=== PATIENT | male | born 1995 | race American Indian/Alaskan Native ===

== ENCOUNTER 2016-06-12 20:50 | Emergency (ER) | payer OTHER, MEDICAID ==
[2016-06-12 21:56] VITALS: TEMP 99.4; O2SAT 100
[2016-06-12] MEDS ORDERED: Naproxen 550 mg Tab PO STA (22:21)
--- NOTE | 2016-06-12 23:59 | ED PDOC ---
Arrival/HPI - General Historian: Patient <Nilda Ortega PA-C - Last Filed: 06/12/16 23:54> <Nasir Springer - Last Filed: 06/13/16 00:23> - General Chief Complaint: Lower Extremity Problem/Injury Time Seen by Provider: 06/12/16 22:21 - History of Present Illness Narrative History of Present Illness (Text): 06/12/16 23:54 Patient reports injuring his left foot at work today when the "fork lift fell" and struck the top of his foot. Otherwise: (-) other injury, (-) numbness. PMD none (Nilda Ortega PA-C) Past Medical History - Provider Review Nursing Documentation Reviewed: Yes - Infectious Disease Hx of Infectious Diseases: None - Psychiatric Hx Substance Use: No - Surgical History Other/Comment: jaw - Anesthesia Hx Anesthesia: No <Nilda Ortega PA-C - Last Filed: 06/12/16 23:54> Family/Social History - Physician Review Nursing Documentation Reviewed: Yes Family/Social History: No Known Family HX Smoking Status: Unknown If Ever Smoked Hx Alcohol Use: No Hx Substance Use: No <Nilda Ortega PA-C - Last Filed: 06/12/16 23:54> Allergies/Home Meds <Nilda Ortega PA-C - Last Filed: 06/12/16 23:54> <Nasir Springer - Last Filed: 06/13/16 00:23> Allergies/Adverse Reactions: Allergies No Known Allergies Allergy (Verified 06/12/16 21:56) Review of Systems - Review of Systems Constitutional: Normal. absent: Fatigue, Weight Change, Fevers Musculoskeletal: Normal. absent: Arthralgias, Back Pain Skin: Normal. absent: Rash, Skin Lesions <Nilda Ortega PA-C - Last Filed: 06/12/16 23:54> Physical Exam <Nilda Ortega PA-C - Last Filed: 06/12/16 23:54> <Nasir Springer - Last Filed: 06/13/16 00:23> - Physical Exam Narrative Physical Exam (Text): 06/12/16 23:56 GENERAL APPEARANCE: Patient is awake, alert, oriented x 3, in mild painful distress. SKIN: Warm, dry, (-) skin leasions or rashes. LOWER EXTREMITY: (+) Tenderness, (+) swelling, (-) ecchymosis of to the dorsal mid L foot. (-) crepitus, (-) deformity. Tendon function intact. (-) distal neurovascular deficit. (+) 2 point discrimination. Remainder of foot, digits and ankle: (-) injury except. (Nilda Ortega PA-C) Vital Signs Temp Pulse Resp BP Pulse Ox 06/12/16 21:53 99.4 F 72 16 123/76 100 Medical Decision Making <Nilda Ortega PA-C - Last Filed: 06/12/16 23:54> <Nasir Springer - Last Filed: 06/13/16 00:23> ED Course and Treatment: 06/12/16 23:57 20 yo M presents with injury to the L foot. Plan -- XR L foot -- Naprosyn PO XR L foot: no fracture, no dislocation, as read by PA Patient advised that official radiology read of XR is still pending and will call the patient if there is any discrepancy within 24 hours. Orthoglass posterior short leg splint applied by LOUIS. Neurovascular intact post splint application. Patient instructed on crutch walking. Based on history, exam and diagnostic results plan will be for outpatient follow -up with Workmen's Comp. Prescription provided. Patient states he fully agrees with and understands discharge instructions. States that he agrees with the plan and disposition. Verbalized and repeated discharge instructions and plan. I have given the patient opportunity to ask any additional questions. Follow up with Workmen's Comp in 1-2 days without fail. Advised to take medication as prescribed. Return to the emergency room at any time for any new or worsening symptoms. (Nilda Ortega PA-C) - RAD Interpretation Radiology Orders: 06/12/16 22:21 FOOT RIGHT 3 VIEWS ROUTINE [RAD] Stat - Medication Orders Current Medication Orders: Discontinued Medications Naproxen (Anaprox Ds) 550 mg PO ONCE STA Stop: 06/12/16 22:22 Last Admin: 06/12/16 22:41 Dose: 550 MG - PA / STRAP STITCHER / Resident Statement [facility] has reviewed & agrees with the documentation as recorded. <Nilda Ortega PA-C - Last Filed: 06/12/16 23:54> - PA / STRAP STITCHER / Resident Statement [facility] has reviewed & agrees with the documentation as recorded. [facility] has examined the patient and agrees with the treatment plan. <Nasir Springer - Last Filed: 06/13/16 00:23> Disposition/Present on Arrival - Present on Arrival Any Indicators Present on Arrival: No History of DVT/PE: No History of Uncontrolled Diabetes: No Urinary Catheter: No History of Decub. Ulcer: No History Surgical Site Infection Following: None - Disposition Have Diagnosis and Disposition been Completed?: Yes Disposition Time: 23:59 Patient Plan: Discharge <Nilda Ortega PA-C - Last Filed: 06/12/16 23:54> <Nasir Springer - Last Filed: 06/13/16 00:23> - Disposition Diagnosis: Foot contusion Disposition: HOME/ ROUTINE Condition: GOOD Discharge Instructions (ExitCare): Foot Contusion (ED) Print Language: AUSTRIAN Additional Instructions: Thank you for letting us take care of you today. You were treated for foot contusion. The emergency medical care you received today was directed at your acute symptoms. If you were prescribed any medication, please fill it and take as directed. It may take several days for your symptoms to resolve. Return to the Emergency Department if your symptoms worsen, do not improve, or if you have any other problems. Please contact workman's comp in 2 days for re-evaluation and follow up. Bring any paperwork you were given at discharge with you along with any medications you are taking to your follow up visit. Our treatment cannot replace ongoing medical care by a primary care provider (PCP) outside of the emergency department. Thank you for allowing the [facility] team to be part of your care today. Prescriptions: Naproxen 500 mg PO BID #30 tab Forms: WORK NOTE
[2016-06-13 00:40] VITALS: BP 129/86; PULSE 74; RESP 18
--- NOTE | 2016-06-13 07:25 | RAD ---
PROCEDURE: Right Foot Radiographs. HISTORY: pain COMPARISON: None. FINDINGS: BONES: Normal. No fracture. JOINTS: Normal. SOFT TISSUES: Normal. OTHER FINDINGS: None. IMPRESSION: Normal right foot radiographs.
== END 2016-06-13 00:42 | disposition home or self-care (01) ==
LOC: ED 20:50
DX: S90.32XA Contusion of left foot, initial encounter (principal); W31.89XA Contact with other specified machinery, initial encounter; Y92.89 Other specified places as the place of occurrence of the external cause; Y99.0 Civilian activity done for income or pay

== ENCOUNTER 2016-06-19 13:18 | Emergency (ER) | payer OTHER, MEDICAID ==
[2016-06-19 13:32] VITALS: BMI 23.7
[2016-06-19 13:35] VITALS: TEMP 98.2
--- NOTE | 2016-06-19 14:11 | ED PDOC ---
Arrival/HPI - General Chief Complaint: Lower Extremity Problem/Injury Time Seen by Provider: 06/19/16 13:34 Historian: Patient - History of Present Illness Narrative History of Present Illness (Text): 06/19/16 14:08 20 y/o male, no significant pmh, nkda, c/o here for the evaluation of the rt. foot x 1 week. Pt. had forklift injury on the rt. 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 Pt. has no numbness or tingling, no night sweat, no dizziness, no chest pain or shortness of breath, no palpitation , no rash, no other medical or psychological complaints. Past Medical History - Provider Review Nursing Documentation Reviewed: Yes - Infectious Disease Hx of Infectious Diseases: None - Psychiatric Hx Substance Use: No - Surgical History Other/Comment: jaw - Anesthesia Hx Anesthesia: No Family/Social History - Physician Review Nursing Documentation Reviewed: Yes Family/Social History: Unknown Family HX Smoking Status: Unknown If Ever Smoked Hx Alcohol Use: No Hx Substance Use: No Allergies/Home Meds Allergies/Adverse Reactions: Allergies No Known Allergies Allergy (Verified 06/19/16 13:32) Review of Systems - Review of Systems Constitutional: absent: Fatigue, Fevers Eyes: absent: Vision Changes ENT: absent: Hearing Changes Respiratory: absent: Cough, Sputum Cardiovascular: absent: Chest Pain Gastrointestinal: absent: Abdominal Pain, Nausea, Vomiting Musculoskeletal: absent: Back Pain, Neck Pain, Joint Swelling, Myalgias Skin: absent: Rash, Pruritis, Skin Lesions, Laceration, Abscess, Ulcer Physical Exam Vital Signs Temp Pulse Resp BP Pulse Ox 06/19/16 13:34 98.2 F 65 17 119/56 L 100 Temperature: Afebrile Pulse: Regular Respiratory Rate: Normal Appearance: Positive for: Well-Appearing, Non-Toxic, Comfortable Pain Distress: Mild Mental Status: Positive for: Alert and Oriented X 3 - Systems Exam Head: Present: Atraumatic, Normocephalic Pupils: Present: PERRL Extroacular Muscles: Present: EOMI Conjunctiva: Present: Normal Mouth: Present: Moist Mucous Membranes Neck: Present: Normal Range of Motion Respiratory/Chest: Present: Clear to Auscultation, Good Air Exchange. No: Respiratory Distress, Accessory Muscle Use Cardiovascular: Present: Regular Rate and Rhythm, Normal S1, S2. No: Murmurs Abdomen: Present: Normal Bowel Sounds. No: Tenderness, Distention, Peritoneal Signs Back: Present: Normal Inspection Upper Extremity: Present: Normal Inspection. No: Cyanosis, Edema Lower Extremity: Present: Normal Inspection, Other (Rt. foot: short posterior splint only up to the mid half calf, splint removed, no tenderness or swelling, no ecchymosis, no laceration or abrasion, FROM without limitation, sensation intact, motor 5/5, +DPPT pulses, capillary refill< 2 seconds, neurovascular intact. ). No: Edema Neurological: Present: GCS=15, CN II-XII Intact, Speech Normal Skin: Present: Warm, Dry, Normal Color. No: Rashes Psychiatric: Present: Alert, Oriented x 3, Normal Insight, Normal Concentration Medical Decision Making ED Course and Treatment: 06/19/16 14:11 -rt. foot examination is unremarkable, will repeat x ray today, and reassess 06/19/16 14:56 -xray show no acute fracture or dislocation. -physical examination is unremarkable. 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 - RAD Interpretation Radiology Orders: 06/19/16 14:07 FOOT RIGHT 3 VIEWS ROUTINE [RAD] Stat PROCEDURE: Right Foot Radiographs. HISTORY: rt. foot pain x 1 week, negative x ray 1 week ago, COMPARISON: None. FINDINGS: BONES: Normal. No fracture. JOINTS: Normal. SOFT TISSUES: Normal. OTHER FINDINGS: None. IMPRESSION: Normal right foot radiographs. External Grinder: Radiologist - PA / HOME RESTORATION SERVICE CLEANER / Resident Statement MD/DO has reviewed & agrees with the documentation as recorded. Disposition/Present on Arrival - Present on Arrival Any Indicators Present on Arrival: No History of DVT/PE: No History of Uncontrolled Diabetes: No Urinary Catheter: No History of Decub. Ulcer: No History Surgical Site Infection Following: None - Disposition Have Diagnosis and Disposition been Completed?: Yes Diagnosis: Follow up, Foot injury Disposition: HOME/ ROUTINE Disposition Time: 14:57 Patient Plan: Discharge Condition: GOOD Additional Instructions: Discharge home with education on continue the crutches if needed, follow up with your own pmd and cut out machine operator within 2 days as needed, return to the ER for any new or worsening signs or symptoms. Prescriptions: Meloxicam [Mobic] 15 mg PO DAILY PRN #10 tablet PRN Reason: Other Referrals: PCP,NO [Primary Care Provider] - Follow up with primary Mauro Martin DPM [Staff Provider] - Follow up with primary Forms: WORK NOTE
--- NOTE | 2016-06-19 14:51 | RAD ---
PROCEDURE: Right Foot Radiographs. HISTORY: rt. foot pain x 1 week, negative x ray 1 week ago, COMPARISON: None. FINDINGS: BONES: Normal. No fracture. JOINTS: Normal. SOFT TISSUES: Normal. OTHER FINDINGS: None. IMPRESSION: Normal right foot radiographs.
[2016-06-19 15:10] VITALS: BP 115/53; PULSE 62; RESP 16; O2SAT 99
== END 2016-06-19 15:47 | disposition home or self-care (01) ==
LOC: ED 13:18
DX: S99.821D Other specified injuries of right foot, subsequent encounter (principal); W31.89XD Contact with other specified machinery, subsequent encounter

== ENCOUNTER 2016-06-20 18:16 | Emergency (ER) | payer MEDICAID, OTHER ==
[2016-06-20 18:17] VITALS: BMI 23.7
[2016-06-20 18:30] VITALS: RESP 16; TEMP 98.2; O2SAT 100
--- NOTE | 2016-06-20 19:06 | ED PDOC ---
Arrival/HPI - General Chief Complaint: Male Genitourinary Time Seen by Provider: 06/20/16 19:05 Historian: Patient - History of Present Illness Narrative History of Present Illness (Text): 06/20/16 19:05 This 20 yo male presents to this ED c/o dysuria x 3 days. Patient stated he has seen a clear penile discharge x 1-2 days. Patient denies testicular pain, genital rash, fever, hematuria, or urinary frequency. Time/Duration: Other (3 days) Context: Home Past Medical History - Provider Review Nursing Documentation Reviewed: Yes - Infectious Disease Hx of Infectious Diseases: None - Psychiatric Hx Substance Use: No - Surgical History Other/Comment: jaw - Anesthesia Hx Anesthesia: No Family/Social History - Physician Review Nursing Documentation Reviewed: Yes Family/Social History: No Known Family HX Smoking Status: Light Smoker < 10 Cigarettes Daily Hx Alcohol Use: No Hx Substance Use: No Allergies/Home Meds Allergies/Adverse Reactions: Allergies No Known Allergies Allergy (Verified 06/20/16 18:24) Home Medications: Home Meds Medication Instructions Recorded Confirmed No Known Home Med 06/20/16 06/20/16 Review of Systems - Review of Systems Constitutional: Normal. absent: Fatigue, Weight Change, Fevers Eyes: Normal ENT: Normal Respiratory: Normal Cardiovascular: Normal Gastrointestinal: Normal. absent: Abdominal Pain, Stool Changes, Diarrhea, Nausea, Vomiting Genitourinary Male: Dysuria, Other (Denies testicular pain). absent: Frequency , Hematuria Musculoskeletal: Normal Skin: Normal Neurological: Normal Endocrine: Normal Hemo/Lymphatic: Normal Psychiatric: Normal Physical Exam Vital Signs Temp Pulse Resp BP Pulse Ox 06/20/16 20:15 67 16 127/69 100 06/20/16 18:25 98.2 F 66 16 130/82 100 Temperature: Afebrile Blood Pressure: Normal Pulse: Regular Respiratory Rate: Normal Appearance: Positive for: Well-Appearing, Non-Toxic, Comfortable Pain Distress: None Mental Status: Positive for: Alert and Oriented X 3 - Systems Exam Head: Present: Atraumatic, Normocephalic Pupils: Present: PERRL Extroacular Muscles: Present: EOMI Conjunctiva: Present: Normal Mouth: Present: Moist Mucous Membranes Neck: Present: Normal Range of Motion Respiratory/Chest: Present: Clear to Auscultation, Good Air Exchange. No: Respiratory Distress, Accessory Muscle Use Cardiovascular: Present: Regular Rate and Rhythm, Normal S1, S2. No: Murmurs Abdomen: Present: Normal Bowel Sounds. No: Tenderness, Distention, Peritoneal Signs Rectal: Present: Other (deferred) Genitourinary Male: Present: Normal External Genitalia, Circumcised Penis, Penile Discharge (trace clear discharge), Masses (Left rounded mobile mass, non- tender just above left testicle). No: Lesions, Testicle Tenderness, Penile Swelling, Erythema, Hernias, Testicle Swelling Back: Present: Normal Inspection Upper Extremity: Present: Normal Inspection. No: Cyanosis, Edema Lower Extremity: Present: Normal Inspection. No: Edema Neurological: Present: GCS=15, CN II-XII Intact, Speech Normal Skin: Present: Warm, Dry, Normal Color. No: Rashes Psychiatric: Present: Alert, Oriented x 3 Medical Decision Making ED Course and Treatment: 06/20/16 19:45 Re-evaluation. Patient feels better. Discussed results and plan with patient who expresses understanding. All questions answered and there is agreement with the plan to discharge home with instructions. Patient stable for discharge. Return if symptoms persist or worsen. Re-evaluation Time: 19:45 Reassessment Condition: Re-examined, Improved - Lab Interpretations Lab Results: Lab Results 06/20/16 19:20: C.trachomatis RNA (TMA) Detected H, N.gonorrhoeae RNA (TMA) Not detected - Medication Orders Current Medication Orders: Discontinued Medications Azithromycin (Zithromax) 1,000 mg PO STAT STA PRN Reason: Protocol Stop: 06/20/16 19:08 Last Admin: 06/20/16 19:29 Dose: 1,000 MG Ceftriaxone Sodium (Rocephin) 250 mg IM STAT STA PRN Reason: Protocol Stop: 06/20/16 19:08 Last Admin: 06/20/16 19:29 Dose: 250 MG IM Administration Charges Document 06/20/16 19:29 EQ (Rec: 06/20/16 19:29 EQ [id number]) Injection Site MAR Injection Site Left Deltoid Charges for Administration # of IM Administrations 1 Disposition/Present on Arrival - Present on Arrival Any Indicators Present on Arrival: No History of DVT/PE: No History of Uncontrolled Diabetes: No Urinary Catheter: No History of Decub. Ulcer: No History Surgical Site Infection Following: None - Disposition Have Diagnosis and Disposition been Completed?: Yes Diagnosis: Urethritis, Testicular mass Disposition: HOME/ ROUTINE Disposition Time: 19:46 Patient Plan: Discharge Condition: GOOD Discharge Instructions (ExitCare): Nonspecific Urethritis in Men (ED) Additional Instructions: Call private doctor for follow up visit in 1-2 days . Also call Urologist to recheck left testicular mass within a week. Return to emergency if symptoms worsen. Do not perform sexual intercourse till you know STD report Referrals: PCP,NO [Primary Care Provider] - Follow up with primary Jeana Patel MD [Staff Provider] - Follow up with primary
[2016-06-20] MEDS ORDERED: cefTRIAXone (Rocephin) 250 mg Inj IM STA (19:07)
[2016-06-20 20:23] VITALS: BP 127/69; PULSE 67
== END 2016-06-20 20:15 | disposition home or self-care (01) ==
LOC: ED 18:16
DX: N34.2 Other urethritis (principal); N50.89 Other specified disorders of the male genital organs
CPT/HCPCS: 87491; 87591; 96372; 99283; J0696

== ENCOUNTER 2017-08-08 20:06 | Emergency (ER) | payer MEDICAID ==
[2017-08-08 20:07] VITALS: BMI 23.7
[2017-08-08 20:48] VITALS: BP 131/88; PULSE 79; TEMP 98.2
[2017-08-08] MEDS ORDERED: cefTRIAXone (Rocephin) 250 mg Inj IM STA (21:09)
[2017-08-08] MEDS ORDERED: Lidocaine 1% Inj (20ml) ONE (21:36)
--- NOTE | 2017-08-08 21:52 | ED PDOC ---
Arrival/HPI - General Chief Complaint: Male Genitourinary Time Seen by Provider: 08/08/17 20:51 Historian: Patient - History of Present Illness Narrative History of Present Illness (Text): 08/08/17 21:53 21-year-old male presents today stating that his partner was diagnosed with chlamydia. Patient states he has occasional burning upon urination. He denies testicular pain he denies any testicular lesions. He denies fevers or chills. He denies penile discharge. Patient states on a side note he did have a tattoo done on 07/30 to left forearm. Patient states today he noticed it was peeling and looked infected. He denies pain. Patient denies abdominal pain. No nausea or vomiting. No other complaints Symptom Course: Intermittent Quality: Burning Severity Level: 1 Past Medical History - Provider Review Nursing Documentation Reviewed: Yes - Travel History Have you recently traveled outside [place] w/in the past 3 mons?: No - Infectious Disease Hx of Infectious Diseases: None - Cardiac Hx Cardiac Disorders: No - Pulmonary Hx Respiratory Disorders: No - Neurological Hx Neurological Disorder: No - HEENT Hx HEENT Disorder: No - Renal Hx Renal Disorder: No - Endocrine/Metabolic Hx Endocrine Disorders: No - Hematological/Oncological Hx Blood Disorders: No - Integumentary Hx Dermatological Disorder: No - Musculoskeletal/Rheumatological Hx Musculoskeletal Disorders: No - Gastrointestinal Hx Gastrointestinal Disorders: No - Genitourinary/Gynecological Hx Genitourinary Disorders: No - Psychiatric Hx Psychophysiologic Disorder: No Hx Substance Use: No - Surgical History Other/Comment: jaw - Anesthesia Hx Anesthesia: Yes Hx Anesthesia Reactions: No Hx Malignant Hyperthermia: No Family/Social History - Physician Review Nursing Documentation Reviewed: Yes Family/Social History: Unknown Family HX Smoking Status: Light Smoker < 10 Cigarettes Daily Hx Alcohol Use: No Hx Substance Use: No Allergies/Home Meds Allergies/Adverse Reactions: Allergies No Known Allergies Allergy (Verified 06/20/16 18:24) Review of Systems - Review of Systems Constitutional: absent: Fatigue, Fevers Respiratory: absent: SOB, Cough Cardiovascular: absent: Chest Pain, Palpitations Gastrointestinal: absent: Abdominal Pain, Nausea, Vomiting Genitourinary Male: Dysuria. absent: Frequency, Hematuria, Urinary Output Changes Musculoskeletal: absent: Arthralgias, Back Pain, Neck Pain Skin: Cellulitis (left forearm). absent: Pruritis, Skin Lesions Neurological: absent: Headache, Dizziness Psychiatric: absent: Anxiety, Depression Physical Exam Vital Signs Reviewed: Yes Vital Signs Temp Pulse Resp BP Pulse Ox 08/08/17 20:44 98.2 F 79 22 131/88 100 Temperature: Afebrile Blood Pressure: Normal Pulse: Regular Respiratory Rate: Normal Appearance: Positive for: Well-Appearing, Non-Toxic, Comfortable Pain Distress: None Mental Status: Positive for: Alert and Oriented X 3 - Systems Exam Head: Present: Atraumatic Respiratory/Chest: Present: Clear to Auscultation Cardiovascular: Present: Regular Rate and Rhythm Upper Extremity: Present: Normal ROM, NORMAL PULSES, Erythema (left arm there is a small area of erythema noted along volar aspect of arm at tatoo; non tender ; no purulent discharge. ). No: Tenderness, Swelling, Neurovascularly Intact, Deformity Neurological: Present: GCS=15 Skin: Present: Warm, Dry Psychiatric: Present: Alert, Oriented x 3 Medical Decision Making ED Course and Treatment: 08/08/17 21:56 Patient is nontoxic well-appearing in no distress with stable vital signs. Presenting with partner after partner received a phone call from her animal physiology teacher that she was positive for chlamydia. Ceftriaxone 250 mg IM Zithromax 1 g p.o. given Gonorrhea and Chlamydia cultures are pending. Patient with cellulitis to the left forearm. will give patient rx Bactrim and Keflex Advised patient to refrain from sex for 10 days followup with the primary care physician within the next 2 days or return if symptoms worsen persist or if new symptoms develop. Impression: STD exposure, cellulitis forearm Bactrim 1 tablet twice daily 7 days Keflex 1 capsule 4 times daily 7 days Follow-up the primary care physician within the next 2 days Return if symptoms worsen persist or if new concerning symptoms develop 08/08/17 21:57 08/08/17 22:19 pt left without d/c papers and rx for bactrim and keflex; called patient; phone number is invalid. - Medication Orders Current Medication Orders: Discontinued Medications Azithromycin (Zithromax) 1,000 mg PO STAT STA PRN Reason: Protocol Stop: 08/08/17 21:10 Last Admin: 08/08/17 21:43 Dose: 1,000 mg Ceftriaxone Sodium (Rocephin) 250 mg IM STAT STA PRN Reason: Protocol Stop: 08/08/17 21:10 Last Admin: 08/08/17 21:42 Dose: 250 mg IM Administration Charges Document 08/08/17 21:42 SS (Rec: 08/08/17 21:42 SS [id number]) Injection Site MAR Injection Site Right Gluteus John Charges for Administration # of IM Administrations 1 Disposition/Present on Arrival - Present on Arrival Any Indicators Present on Arrival: No History of DVT/PE: No History of Uncontrolled Diabetes: No Urinary Catheter: No History of Decub. Ulcer: No History Surgical Site Infection Following: None - Disposition Have Diagnosis and Disposition been Completed?: Yes Diagnosis: STD exposure, Cellulitis of arm Disposition: HOME/ ROUTINE Disposition Time: 21:49 Patient Plan: Discharge Patient Problems: Current Active Problems Problem Status Onset Cellulitis of arm Acute STD exposure Acute Condition: GOOD Discharge Instructions (ExitCare): Sexually-Transmitted Diseases (DC), Cellulitis (ED) Additional Instructions: Bactrim 1 tablet twice daily 7 days Keflex 1 capsule 4 times daily 7 days Follow-up the primary care physician within the next 2 days Return if symptoms worsen persist or if new concerning symptoms develop Prescriptions: Cephalexin [Keflex] 500 mg PO QID #28 capsule Sulfamethoxazole/Trimethoprim [Bactrim DS 800 mg-160 mg] 1 tab PO BID #14 tab Referrals: Lio Ryder [Primary Care Provider] - Follow up with primary Forms: [facility] (Macedonian), WORK NOTE
[2017-08-08 23:27] VITALS: RESP 18; O2SAT 98
== END 2017-08-08 23:25 | disposition home or self-care (01) ==
LOC: ED 20:06
DX: Z20.2 Contact with and (suspected) exposure to infections with a predominantly sexual mode of transmission (principal); L03.114 Cellulitis of left upper limb
CPT/HCPCS: 87491; 87591; 96372; 99283; J0696